=== PATIENT | male | born 1980 | race Caucasian/White ===

== ENCOUNTER 2018-11-19 13:47 | Emergency (ER) | payer BC, OTHER ==
[2018-11-19 14:02] VITALS: BP 128/88; PULSE 92; RESP 18; TEMP 98.3
[2018-11-19] MEDS ORDERED: ACETAMINOPHEN TAB 325 MG TAB PO STA (14:18)
--- NOTE | 2018-11-19 14:41 | ED ---
General Adult HPI - General Chief complaint: Extremity Injury, Upper Stated complaint: Hurt elbow and hand at work Time Seen by Provider: 11/19/18 14:05 Source: patient, RN notes reviewed, old records reviewed Mode of arrival: ambulatory Limitations: no limitations - History of Present Illness Initial comments: 38-year-old male patient in the chief complaint of left elbow and hand pain. Patient reports that yesterday while at work he was moving the seat in a car. Patient reports that the CT moves up and down for discharge purposes. Patient was attempting to return to see to its downward position, when he came down on his left upper extremity. Patient was this occurred approximately 11 PM last night. Patient states that yesterday he had a mild amount of hand pain. Patient reports that today cheif complaint is left elbow pain. Patient denies any other complaints. Systemic: Pt denies fatigue, fever/chills, rash. Pt denies weakness, night s weats, weight loss. Neuro: Pt denies headache, visual disturbances, syncope or pre-syncope. HEENT: Pt denies ocular discharge or irritation, otalgia, rhinorrhea, pharyngitis or notable lymphadenopathy. Cardiopulmonary: Pt denies chest pain, SOB, heart palpitations, dyspnea on exertion. Abdominal/GI: Pt denies abdominal pain, n/v/d. : Pt denies dysuria, burning w/ urination, frequency/urgency. Denies new onset urinary or bowel incontinence. MSK: Pt denies loss of strength or function in extremities. Neuro: Pt denies new onset weakness, paresthesias. - Related Data Home Medications Medication Instructions Recorded Confirmed Albuterol Inhaler [Ventolin Hfa 2 puff INHALATION DIRECTED 07/21/14 07/21/14 Inhaler] Budesonide-Formot 160-4.5 Mcg 1 puff INHALATION BID 07/21/14 07/21/14 [Symbicort 160-4.5 Mcg Inhaler] Fluticasone/Salmeterol [Advair 1 inh INHALATION DIRECTED 07/21/14 07/21/14 100-50 Diskus] Previous Rx's Medication Instructions Recorded Ipratropium-Albuterol Nebulize 3 ml IH Q4-6H PRN #1 box 07/21/14 [Duoneb 0.5 mg-3 mg/3 ml Soln] methylPREDNISolone [Medrol] 1 pack PO DIRECTED #1 tab.ds.pk 07/21/14 Allergies Allergy/AdvReac Type Severity Reaction Status Date / Time cyclobenzaprine HCl AdvReac Anaphylaxis Verified 11/19/18 14:02 [From Flexeril] Review of Systems ROS Statement: Those systems with pertinent positive or pertinent negative responses have been documented in the HPI. ROS Other: All systems not noted in ROS Statement are negative. Past Medical History Past Medical History: Asthma History of Any Multi-Drug Resistant Organisms: None Reported Additional Past Surgical History / Comment(s): EYE SURGERY Past Psychological History: No Psychological Hx Reported Smoking Status: Never smoker Past Alcohol Use History: Occasional Past Drug Use History: None Reported General Exam - General Exam Comments Initial Comments: Constitutional: NAD, AOX3, Pt has pleasant affect. HEENT: NC/AT, trachea midline, neck supple, no lymphadenopathy. Posterior pharynx non erythematous, without exudates. External ears appear normal, without discharge. Mucous membranes moist. Eyes PERRLA, EOM intact. There is no scleral icterus. No pallor noted. Cardiopulmonary: RRR, no murmurs, rubs or gallops, no JVD noted. Lungs CTAB in anterior and posterior ortega. No peripheral edema. Abdominal exam: Abdomen soft and non-distended. Abdomen non-tender to palpation in all 4 quadrants. Bowel sounds active in LLQ. No hepatosplenomegaly. No ecchymosis Neuro: CN II-XII grossly intact. No nuchal rigidity. No raccon eyes, no selby sign, no hemotympanum. No cervical spinal tenderness. MSK: Left elbow tender to palpation. Range of motion intact. First metacarpal mildly tender to palpation. [employer] strength intact. Neurovascular intact. Cap refill less than 2 seconds. Compartments soft. No snuffbox tenderness. No posterior calf tenderness bilaterally, homans sign negative bilaterally. Posterior tibialis and radial pulse +2 bilaterally. Sensation intact in upper and lower extremities. Full active ROM in upper and lower extremities, 5/5 stregnth. Limitations: no limitations Course Vital Signs 11/19/18 14:00 Temperature 98.3 F Pulse Rate 92 Respiratory 18 Rate Blood Pressure 128/88 O2 Sat by Pulse 98 Oximetry Medical Decision Making - Medical Decision Making 38-year-old male patient in the chief complaint of left elbow and hand pain. Patient reports that yesterday while at work he was moving the seat in a car. Patient reports that the CT moves up and down for discharge purposes. Patient was attempting to return to see to its downward position, when he came down on his left upper extremity. Patient was this occurred approximately 11 PM last night. Patient states that yesterday he had a mild amount of hand pain. Patient reports that today cheif complaint is left elbow pain. Patient denies any other complaints. Patient will signs stable, afebrile. Physical exam displayed: Left elbow tender to palpation. Range of motion intact. First metacarpal mildly tender to palpation. [employer] strength intact. Neurovascular intact. Cap refill less than 2 seconds. Compartments soft. No snuffbox tender ness. Plain film of hand, elbow, forearm densely acute process. Patient placed in 90 splint of left elbow. Neurovascularly intact after splint placement. Patient placed in sling. Explained range of motion the patient, risks of adhesive capsulitis. Patient verbalized understanding. Patient discharged with orthopedic follow-up. Patient follows up with orthopedic consult through [facility], provided orthopedic consult from [facility] as well. Case discussed with Dr. Álvarez. Disposition Clinical Impression: Elbow sprain, Arm sprain Disposition: HOME SELF-CARE Condition: Stable Instructions (If sedation given, give patient instructions): Elbow Sprain (ED), How to Use a Sling (ED) Additional Instructions: Patient to adhere to previously discussed treatment plan and will take medication(s) as directed. Patient to follow up with PCP in 1-2 days. Patient to return to ED if symptoms do not improve. Continue to wear splint. Follow up with orthopedic consult. Return to ER if condition worsens. Is patient prescribed a controlled substance at d/c from ED?: No Referrals: None,Stated [Primary Care Provider] - 1-2 days Kaleb Hui PAC [PHYSICIAN [employer]] - 1-2 days
--- NOTE | 2018-11-19 14:46 | XR ---
EXAMINATION TYPE: XR forearm LT DATE OF EXAM: 11/19/2018 COMPARISON: None HISTORY: Pain TECHNIQUE: Left forearm is examined in 2 projections. FINDINGS: No acute fractures or dislocations are evident. The soft tissues are normal. Anterior fat p ad is normal. Radius aligns normally with the humerus. IMPRESSION: 1. Bowel 2 view left forearm. 2. Follow-up exams can be performed 7-10 days from acute trauma for continued pain.
--- NOTE | 2018-11-19 14:47 | XR ---
EXAMINATION TYPE: XR elbow complete LT DATE OF EXAM: 11/19/2018 COMPARISON: None HISTORY: Left elbow pain TECHNIQUE: Three-view left elbow FINDINGS: Radius aligns normally with the humerus. Joint spaces are preserved. No elevation of the an terior posterior fat pad is evident. IMPRESSION: 1. Normal three-view left elbow. 2. Follow-up exams can be performed 7-10 days from acute trauma for continued pain.
--- NOTE | 2018-11-19 14:48 | XR ---
EXAMINATION TYPE: XR hand complete LT DATE OF EXAM: 11/19/2018 COMPARISON: None HISTORY: Left hand pain following work TECHNIQUE: Left hand examined in 3 projections. FINDINGS: No acute fractures or dislocations are evident. Joint spaces are preserved. No joint narrow ing is evident. Soft tissues are normal. IMPRESSION: 1. Normal three-view left hand.
[2018-11-19] MEDS ORDERED: ACET/COD 300 MG/30 MG STARTER PACK 6 TAB BTL PO STA (15:28)
== END 2018-11-19 15:40 | disposition home or self-care (01) ==
LOC: EC 13:47
DX: S53.402A Unspecified sprain of left elbow, initial encounter (principal); J45.909 Unspecified asthma, uncomplicated; Y99.0 Civilian activity done for income or pay; Z88.8 Allergy status to other drugs, medicaments and biological substances; Z79.51 Long term (current) use of inhaled steroids; Z79.899 Other long term (current) drug therapy; W01.198A Fall on same level from slipping, tripping and stumbling with subsequent striking against other object, initial encounter; Y93.89 Activity, other specified; Y92.69 Other specified industrial and construction area as the place of occurrence of the external cause
CPT/HCPCS: 99284

== ENCOUNTER → 2023-11-22 | Outpatient (CLI) | payer BC ==
[2023-11-22 13:18] LABS: Basophils # (A) 0.03 X 10*3/uL (0.00-0.10); Basophils % (A) 0.6 %; Eosinophils # (A) 0.21 X 10*3/uL (0.04-0.35); HCT 46.6 % (39.6-50.0); HGB 15.6 g/dL (13.0-17.0); Lymphocytes # (A) 1.81 X 10*3/uL (0.90-5.00); Lymphocytes % (A) 34.2 %; MCHC 33.5 g/dL (32.0-37.0); MCV 89.6 FL (80.0-97.0); Mean Platelet Volume 12.5 FL (9.5-12.2); Monocytes % (A) 5.7 %; NRBC Per 100 WBC 0 X 10*3/uL (0.00-0.01); Neutrophils # (A) 2.93 X 10*3/uL (1.80-7.70); Neutrophils % (A) 55.1 %; Platelet Count 134 X 10*3/uL (140-440); RDW 13.2 % (11.5-14.5)
[2023-11-22 14:17] LABS: Chol/HDL Ratio 9.57 Ratio
[2023-11-22 14:18] LABS: ALT 42 U/L (10-49); AST 22 U/L (14-35); Albumin 4.2 g/dL (3.8-4.9); Albumin/Globulin Ratio 1.62 Ratio (1.60-3.17); Alkaline Phosphatase 127 U/L (41-126); BUN/Creat Ratio 10.75 Ratio (12.00-20.00); Blood Urea Nitrogen 12.9 mg/dL (9.0-27.0); Calcium 9.3 mg/dL (8.7-10.3); Carbon Dioxide 24.8 mmol/L (21.6-31.8); Chloride 104 mmol/L (96-109); Globulin 2.6 g/dL (1.6-3.3); Glucose 126 mg/dL (70-110); Potassium 4.7 mmol/L (3.5-5.5); Sodium 139 mmol/L (135-145); T4, Free (Free Thyroxine) 1.11 ng/dL (0.80-1.80); Total Bilirubin 0.4 mg/dL (0.3-1.2); Total Protein 6.8 g/dL (6.2-8.2)
== END | disposition home or self-care (01) ==
LOC: LABWHC1 08:33
PROVIDERS: ATTEND Internal Medicine
DX: E78.5 Hyperlipidemia, unspecified (principal)
CPT/HCPCS: 36415; 80053; 80061; 83721; 84439; 84443; 85025